=== PATIENT | male | born 1950 | race Caucasian/White ===

== ENCOUNTER 2024-09-24 10:30 | Outpatient (RCR) | payer MEDICARE, SELFPAY ==
--- NOTE | 2024-09-16 09:45 | URNOTE ---
Gemcitabine ([id number]) has been approved 09/17/24-09/17/25. Ref #[id number]
[2024-09-17 09:13] LABS: Hematocrit 49.6 % (37.0-53.0); Hemoglobin* 16.3 gm/dL (13.5-17.5); Immature Granulocytes Abs Auto 0.02 K/uL (0.00-0.30); Immature Granulocytes Pct Auto 0.2 %; Mean Corpuscular HGB Conc 33 gm/dL (32-36); Mean Corpuscular Hemoglobin 33 pg (26-34); Mean Corpuscular Volume 101 fL (80-100); RDW Coefficient of Variation % 13.6 % (11.5-15.5); Red Blood Count 4.92 m/uL (4.30-5.90); White Blood Count* 9.33 K/uL (4.50-11.00)
[2024-09-17 09:15] LABS: Lymphocytes Absolute Auto 1.40 K/uL (0.90-2.90); Slide Review Reflex No
[2024-09-17 09:17] VITALS: BP 138/75; PULSE 72; RESP 16; TEMP 36.3; O2SAT 72
[2024-09-17 09:27] LABS: Chloride* 102 mmol/L (96-114); Potassium* 4.5 mmol/L (3.6-5.1); Sodium* 139 mmol/L (135-149)
[2024-09-17 09:30] LABS: Alanine Aminotransferase* 16 U/L (4-50); Alkaline Phosphatase* 73 U/L (40-150); Anion Gap 8 mEq/L (7-15); Aspartate Amino Transferase* 29 U/L (12-35); Bilirubin Total* 1.0 mg/dL (0.1-1.5); Blood Urea Nitrogen* 24 mg/dL (7-30); Carbon Dioxide* 29 mmol/L (20-32); Creatinine* 2.3 mg/dL (0.5-1.5); Est. Creatinine Clearance* 29.98; Estimated Glomerular Filt Rate 29 ml/min
[2024-09-17 09:31] LABS: Calcium* 9.6 mg/dL (8.4-10.6); Glucose* 99 mg/dL (60-115); Total Protein* 7.9 g/dL (6.0-8.3)
[2024-09-17 09:38] LABS: Albumin* 4.4 g/dL (3.3-5.0)
--- NOTE | 2024-09-17 10:39 | ONC.NURNOTE ---
PSDS--1 denies any concerns related to treatment start discussed future opportunity for SS if needed
--- NOTE | 2024-09-17 10:46 | ONC.NURNOTE ---
NEW TREATMENT START EDUCATION: Reviewed possible side effects of gemzar, after hours management, fever management, self care at home, antiemetics, diarrhea management- handouts provided, reviewed contents of treatment binder, questions addressed, consents reviewed and signed Dain and his have 23 grandchildren, one lives with them, and another they drive to [place] daily and Dain goes to the with 5 days a week.
[2024-09-17] MEDS: GRANISETRON 1 MG/ML inj IVP (10:59)
[2024-09-17] MEDS: SODIUM CHLORIDE 0.9 % (FLUSH) 10 ML SYRINGE IVF (11:01)
[2024-09-17] MEDS: 0.9 % SODIUM CHLORIDE 500 ML IV (11:01)
[2024-09-17] MEDS: SODIUM CHLORIDE 0.9% IV (11:27)
[2024-09-17] MEDS: TUBING SECONDARY IV (11:27)
[2024-09-17] MEDS: GEMCITABINE IV (11:27)
--- NOTE | 2024-09-18 11:21 | ONC.NURNOTE ---
Called pt today to check in after his first chemo infusion yesterday. Dain states that he is doing well and only notes dry skin on his hands. He and his feel this may be coincidental but he states this is the only thing he noted that is different. RN advised pt to push fluids, stay hydrated and use high quality hand cream such as CeraVe or Eucerin. Pt verbalized understanding. Pt has radiation later today. He will be back at [facility]] on Saturday for chemo.
[2024-09-21 10:41] VITALS: BP 153/83; PULSE 76; RESP 16; TEMP 36.4; O2SAT 94
[2024-09-21 12:20] LABS: PCR FLU A Negative PCR FLU A (Negative); PCR FLU B Negative PCR FLU B (Negative); PCR RSV POSITIVE PCR RSV (Negative); SARS PCR* Negative SARS-CoV-2 (Negative)
--- NOTE | 2024-09-21 12:48 | ONC.NURNOTE ---
Patient in clinic today for C1D4 Gemzar. On assessment patient reports that over the weekend he was having some soreness and achiness across his chest and in his low back. Reports that his chest achiness is better but still has low back pain rating a 2/10. Patient reports that his granddaughter and are both sick at home. They have coughs and runny noses. Patient is actively coughing during assessment but is wearing a mask. RN spoke with Chanell Quijano APRN who ordered a COVID/INFLUENZA/RSV swab. Patient was placed in a private room with the door closed. Patient's results came back positive for RSV. RN updated Chanell Robles with results. Chanell spoke with Dr. Thompson who wants treatment held today, patient can possibly have treatment on depending on symptoms. RN will check in with him on Saturday afternoon. RN updated [facility]. Patient given self care hand out on RSV, advised him to be seen if he develops a fever of 100.4 or higher and also advised him to update his PCP that he is positive for RSV. Patient verbalized understanding and agreeable to the plan.
--- NOTE | 2024-09-23 14:50 | ONC.NURNOTE ---
Called patient today to follow up after his RSV diagnosis on Thursday 09/21 while patient was here in clinic. Patient reports he is feeling better. He denies any fevers, SOB, or achiness. Does report he still has a slight cough but it is better than it was earlier in the week. Patient did let his PCP know he has RSV and she recommended symptom management at home as well unless he developed a fever. RN update Chanell Quijano APRN who stated it is ok for patient to come into the clinic tomorrow as long as he is masked for his labs, RC with Dr. Thompson, and his infusion. Staff will need to follow contact and droplet precautions. RN updated patient to come to his appts tomorrow. Patient verbalized understanding and is agreeable to the plan.
--- NOTE | 2024-09-24 08:34 | ONC.NURNOTE ---
Pt left message stating he was cancelling his chemo appt today. Area Manager called pt back and pt stated he felt worse last evening related to his RSV and decided to receive chemotherapy elsewhere. Pt has messaged his care team. [facility] care team updated.
== END 2025-03-16 23:59 | disposition home or self-care (01) ==
LOC: CCIC 10:30
PROVIDERS: PCP Family Medicine; Referring Provider Family Medicine; Visit Provider Clinical Nurse Specialist
DX: C67.9 Malignant neoplasm of bladder, unspecified (principal)
CPT/HCPCS: 36415; 80053; 85025; 87631; 96375; 96413; 99211; J1626; J7030; J9201